=== PATIENT | male | born 1975 | race Hispanic/Latino ===

== ENCOUNTER 2019-10-18 00:48 | Emergency (ER) | payer BC ==
[~2019-10-18] VITALS: Ht 172.7 cm; Wt 85.3 kg
--- NOTE | 2019-10-18 02:15 | NUR ---
ALL LAB RESULTS GIVEN TO . AWAITING CXR RESULTS
--- NOTE | 2019-10-18 02:47 | Diagnostic Imaging Report ---
EXAMINATION: CXR 2 VIEW - HOPD INDICATION: Short of breath, cough COMPARISON: None FINDINGS: TUBES and LINES: None. LUNGS: Normal lung volumes. Subtle central bronchial wall thickening. No consolidations. PLEURA: No pleural effusion or pneumothorax. HEART AND MEDIASTINUM: The cardiomediastinal silhouette is unremarkable. BONES AND SOFT TISSUES: No acute osseous lesion. Soft tissues are unremarkable. UPPER ABDOMEN: No free air under the diaphragm. IMPRESSION: Subtle findings of bronchitis. Signed by: Gabriel Mahajan DO on 10/18/2019 2:44 AM
--- NOTE | 2019-10-18 04:00 | Diagnostic Imaging Report ---
EXAM: CT Chest WITHOUT contrast INDICATION: Short of breath COMPARISON: Same day chest x-ray TECHNIQUE: Chest was scanned utilizing a multidetector helical scanner from the lung apex through the level of the adrenal glands without administration of IV contrast. Absence of intravenous contrast decreases sensitivity for detection of lymphadenopathy and vascular pathology. Coronal and sagittal reformations were obtained. Routine protocol was performed. IV CONTRAST: None COMPLICATIONS: None RADIATION DOSE: Total DLP: 827 mGy*cm Estimated effective dose: (DLP x 0.014 x size factor) mSv CTDIvol has been reviewed. It is below the limits set by the Radiation Protocol Committee (RPC). Dose modulation, iterative reconstruction, and/or weight based adjustment of the mA/kV was utilized to reduce the radiation dose to as low as reasonably achievable. FINDINGS: LINES/ TUBES: None. LUNGS AND AIRWAYS: The lungs are unremarkable. Airways are normal. PLEURA: The pleural spaces are clear. HEART AND MEDIASTINUM: The thyroid gland is normal. No mediastinal, hilar or axillary lymphadenopathy. The heart is normal in size. There is no pericardial effusion. UPPER ABDOMEN: Unremarkable. BONES: The visualized bony thorax is within normal limits. SOFT TISSUES: Unremarkable. IMPRESSION: No acute thoracic abnormality on this noncontrast CT. Signed by: Gabriel Mahajan DO on 10/18/2019 3:57 AM
--- NOTE | 2019-10-18 04:03 | NUR ---
CT RESULTS IN. INFORMED
--- NOTE | 2019-10-18 04:09 | NUR ---
IVSL DC'D WITHOUT DIFF. NO REDNESS/SWELLING/BLEEDING TO SITE. CATH INTACT. PT TOLERATED WELL.
[2019-10-18 04:24] VITALS: BP 119/79
== END 2019-10-18 04:20 | disposition home or self-care (01) ==
LOC: FSED 00:48
DX: R06.00 Dyspnea, unspecified (principal); R05 Cough; J20.8 Acute bronchitis due to other specified organisms
CPT/HCPCS: 71046; 71250; 80048; 80076; 82553; 84484; 85025; 93005; 99284